=== PATIENT | female | born 1960 | race Caucasian/White ===

== ENCOUNTER 2016-10-03 12:42 | Emergency (ER) | payer OTHER ==
--- NOTE | 2016-10-03 14:12 | EDDOCDS ---
Physician Documentation [facility] Name: Dana Mims Age: 55 yrs Sex: Female : 1960 Arrival Date: 10/03/2016 Time: 12:42 Bed TR7 Private MD: BRANDON VENEGAS Disposition: 10/03/16 14:02 Discharged to Home/Self Care. Impression: Chronic pain syndrome, Hyperesthesia. - Condition is Stable. - Discharge Instructions: Chronic Pain. - Prescriptions for Robaxin- 750 750 mg Oral Tablet - take 1 tablet by ORAL route every 6 hours As needed; 40 tablet. etodolac 200 mg Oral Capsule - take 1 capsule by ORAL route 3 times per day; 30 capsule. - Medication Reconciliation, Local Pharmacy Hours form. - Follow up: BRANDON VENEGAS; When: Call to arrange an appointment; Reason: Further diagnostic work-up, Recheck today's complaints, Continuance of care. - Problem is an ongoing problem. - Symptoms are unchanged. Historical: - Allergies: PENICILLINS; - Home Meds: 1. tramadol 50 mg Oral tab 2 tabs three times a day - PMHx: Arthritis; - PSHx: Cesearean Section; - Social history: Smoking status: Patient states was never smoker of tobacco. No barriers to communication noted, The patient speaks fluent [place], Speaks appropriately for age. - Family history: Not pertinent. - : The pt / caregiver states he / she is not on anticoagulants. Home medication list is obtained from the patient. - Exposure Risk Screening:: None identified. Vital Signs: 10/03 12:44 BP 173 / 73; Pulse 98; Resp 18 S; Temp 98.2(O); Pulse Ox 96% on R/A; Weight 87.09 kg / dd6 192 lbs (R); Height 5 ft. 3 in. (160.02 cm) (R); 12:44 Body Mass Index 34.01 (87.09 kg, 160.02 cm) dd6 MDM: 14:11 Financial registration complete. lg Signatures: Genesis Khoury, RN RN Destiny [place], Mitul Bauman lg Yoshi Krishnan RN RN mlb1 John Taylor PA PA btw MTDD
--- NOTE | 2016-10-03 14:13 | EDDOCDS ---
[facility] Notes [facility] Name: Dana Mims Age: 55 yrs Sex: Female : 1960 Arrival Date: 10/03/2016 Time: 12:42 Bed TR7 Private MD: BRANDON VENEGAS Diagnosis: Chronic pain syndrome;Hyperesthesia Presentation: 10/03 12:45 Presenting complaint: Patient states: Arthritic chronic pain all over ran out of mlb1 Tramadol appointment with PCP on 10/10/16. Adult Sepsis Screening: The patient does not have new or worsening altered mentation. Patient's respiratory rate is less than 22. Systolic blood pressure is greater than 100. Patient has a qSOFA score of 0- Negative Sepsis Screen. Suicide/Homicide risk assessment- the patient denies having any suicidal and/or homicidal ideations and does not present with any other emotional, behavioral or mental health complaints. Status: Patient is not a director of customer service or dependent. Transition of care: patient was not received from another setting of care. 12:45 Acuity: RAMYA Level 5 mlb1 12:45 Method Of Arrival: Walkin/Carried/Asstd mlb1 Triage Assessment: 12:48 General: Appears in no apparent distress, Behavior is appropriate for age, cooperative. mlb1 Pain: Location: "all over" Pain currently is 8 out of 10 on a pain scale. Pt Declines HIV testing. Neurological: No deficits noted. Historical: - Allergies: PENICILLINS; - Home Meds: 1. tramadol 50 mg Oral tab 2 tabs three times a day - PMHx: Arthritis; - PSHx: Cesearean Section; - Social history: Smoking status: Patient states was never smoker of tobacco. No barriers to communication noted, The patient speaks fluent Greek, Speaks appropriately for age. - Family history: Not pertinent. - : The pt / caregiver states he / she is not on anticoagulants. Home medication list is obtained from the patient. - Exposure Risk Screening:: None identified. Screenin:10 Screening information is obtained from the patient. Fall risk: No risks identified. srm Assistance ADL's: requires no assistance with activities of daily living. Abuse/DV Screen: The patient / caregiver reports he/she is: not in a situation that causes fear, pain or injury. Nutritional screening: No deficits noted. Advance Directives: There is no active DNR order. home support is adequate. Assessment: 14:10 General: Appears in no apparent distress, Behavior is appropriate for age, cooperative. srm Neurological: No deficits noted. Respiratory: No deficits noted. GI: No deficits noted. Vital Signs: 12:44 BP 173 / 73; Pulse 98; Resp 18 S; Temp 98.2(O); Pulse Ox 96% on R/A; Weight 87.09 kg dd6 (R); Height 5 ft. 3 in. (160.02 cm) (R); 12:44 Body Mass Index 34.01 (87.09 kg, 160.02 cm) dd6 Vitals: 12:44 Log In Time: October 03, 2016 at 12:42. dd6 ED Course: 12:43 Patient visited by Benny Bailey PCA. dd6 12:43 NONE is Private Physician. dd6 12:43 BRANDON VENEGAS is Private Physician. dd6 12:43 Patient moved to Waiting dd6 12:45 Patient visited by Yoshi Krishnan, HARSHA. mlb1 12:45 Patient moved to Pre RCE dd6 12:46 Triage Initiated mlb1 12:48 Patient visited by Yoshi Krishnan RN. mlb1 13:43 John Taylor PA is PHCP. btw 13:43 Rhona Brady MD is Attending Physician. btw 13:43 Patient visited by John Taylor PA. btw 13:43 Patient moved to Triage 2 srm 14:02 BRANDON VENEGAS is Referral Physician. btw 14:09 Patient moved to TR7 ct3 14:10 The patient / caregiver is instructed regarding the plan of care and ED course. Patient srm has correct armband on for positive identification. 14:10 No IV's were initiated during this patient's visit. No procedures done that require srm assistance. Order Results: There are currently no results for this order. Outcome: 14:02 Discharge ordered by Provider. btw 14:10 Discharge Assessment: Patient awake, alert and oriented x 3. No cognitive and/or srm functional deficits noted. Patient verbalized understanding of disposition instructions. patient administered narcotics - no. The following High Risk Discharge criteria are identified: None. Discharged to home ambulatory. Condition: good Condition: stable. Discharge instructions given to patient, Instructed on discharge instructions, follow up and referral plans. medication usage, Demonstrated understanding of instructions, medications, Pt was receptive of discharge instructions/ teaching. Prescriptions given X 2. No special radiology studies were completed. Property sent home with patient. 14:11 Patient left the ED. srm Signatures: Genesis Khoury, RN RN Yoshi Mcconnell RN RN mlb1 Benny Bailey, CUTTER OUT CUTTER OUT dd6 John Taylor PA PA btw Lyly Casey, CUTTER OUT CUTTER OUT ct3 MTDD
--- NOTE | 2016-10-05 15:12 | EDDOCDS ---
Nurse's Notes [facility] Name: Dana Mims Age: 55 yrs Sex: Female : 1960 Arrival Date: 10/03/2016 Time: 12:42 Bed TR7 Private MD: BRANDON VENEGAS Diagnosis: Chronic pain syndrome;Hyperesthesia Presentation: 10/03 12:45 Presenting complaint: Patient states: Arthritic chronic pain all over ran out of mlb1 Tramadol appointment with PCP on 10/10/16. Adult Sepsis Screening: The patient does not have new or worsening altered mentation. Patient's respiratory rate is less than 22. Systolic blood pressure is greater than 100. Patient has a qSOFA score of 0- Negative Sepsis Screen. Suicide/Homicide risk assessment- the patient denies having any suicidal and/or homicidal ideations and does not present with any other emotional, behavioral or mental health complaints. Status: Patient is not a tax services manager or dependent. Transition of care: patient was not received from another setting of care. 12:45 Acuity: RAMYA Level 5 mlb1 12:45 Method Of Arrival: Walkin/Carried/Asstd mlb1 Triage Assessment: 12:48 General: Appears in no apparent distress, Behavior is appropriate for age, cooperative. mlb1 Pain: Location: "all over" Pain currently is 8 out of 10 on a pain scale. Pt Declines HIV testing. Neurological: No deficits noted. Historical: - Allergies: PENICILLINS; - Home Meds: 1. tramadol 50 mg Oral tab 2 tabs three times a day - PMHx: Arthritis; - PSHx: Cesearean Section; - Social history: Smoking status: Patient states was never smoker of tobacco. No barriers to communication noted, The patient speaks fluent Moh[place], Speaks appropriately for age. - Family history: Not pertinent. - : The pt / caregiver states he / she is not on anticoagulants. Home medication list is obtained from the patient. - Exposure Risk Screening:: None identified. Screenin:10 Screening information is obtained from the patient. Fall risk: No risks identified. srm Assistance ADL's: requires no assistance with activities of daily living. Abuse/DV Screen: The patient / caregiver reports he/she is: not in a situation that causes fear, pain or injury. Nutritional screening: No deficits noted. Advance Directives: There is no active DNR order. home support is adequate. Assessment: 14:10 General: Appears in no apparent distress, Behavior is appropriate for age, cooperative. srm Neurological: No deficits noted. Respiratory: No deficits noted. GI: No deficits noted. Vital Signs: 12:44 BP 173 / 73; Pulse 98; Resp 18 S; Temp 98.2(O); Pulse Ox 96% on R/A; Weight 87.09 kg dd6 (R); Height 5 ft. 3 in. (160.02 cm) (R); 12:44 Body Mass Index 34.01 (87.09 kg, 160.02 cm) dd6 Vitals: 12:44 Log In Time: October 03, 2016 at 12:42. dd6 ED Course: 12:43 Patient visited by Benny Bailey PCA. dd6 12:43 NONE is Private Physician. dd6 12:43 BRANDON VENEGAS is Private Physician. dd6 12:43 Patient moved to Waiting dd6 12:45 Patient visited by Yoshi Krishnan, RN. mlb1 12:45 Patient moved to Pre RCE dd6 12:46 Triage Initiated mlb1 12:48 Patient visited by Yoshi Krishnan, HARSHA. mlb1 13:43 John Taylor PA is PHCP. btw 13:43 Rhona Brady MD is Attending Physician. btw 13:43 Patient visited by John Taylor PA. btw 13:43 Patient moved to Triage 2 srm 14:02 BRANDON VENEGAS is Referral Physician. btw 14:09 Patient moved to TR7 ct3 14:10 The patient / caregiver is instructed regarding the plan of care and ED course. Patient srm has correct armband on for positive identification. 14:10 No IV's were initiated during this patient's visit. No procedures done that require srm assistance. 10/05 08:42 T-Sheet-- Draft Copy was scanned into [employer] and attached to record. gb 09:34 [facility] Payment Agreement was scanned into [employer] and attached to record. lg Order Results: There are currently no results for this order. Outcome: 10/03 14:02 Discharge ordered by Provider. btw 14:10 Discharge Assessment: Patient awake, alert and oriented x 3. No cognitive and/or srm functional deficits noted. Patient verbalized understanding of disposition instructions. patient administered narcotics - no. The following High Risk Discharge criteria are identified: None. Discharged to home ambulatory. Condition: good Condition: stable. Discharge instructions given to patient, Instructed on discharge instructions, follow up and referral plans. medication usage, Demonstrated understanding of instructions, medications, Pt was receptive of discharge instructions/ teaching. Prescriptions given X 2. No special radiology studies were completed. Property sent home with patient. 14:11 Patient left the ED. srm Signatures: Genesis Khoury, RN RN srm Isabell Gandhi, Reg Reg gb Destiny Friedman, Reg Reg lg Yoshi Krishnan RN RN mlb1 Benny Bailey, ROUTE DRIVER SALESPERSON ROUTE DRIVER SALESPERSON dd6 John Taylor PA PA btw Lyly Casey, ROUTE DRIVER SALESPERSON ROUTE DRIVER SALESPERSON ct3 Chart Complete MTDD
--- NOTE | 2016-10-05 15:12 | EDDOCDS ---
Physician Documentation [facility] Name: Dana Mims Age: 55 yrs Sex: Female : 1960 Arrival Date: 10/03/2016 Time: 12:42 Bed TR7 Private MD: BRANDON VENEGAS Disposition: 10/03/16 14:02 Discharged to Home/Self Care. Impression: Chronic pain syndrome, Hyperesthesia. - Condition is Stable. - Discharge Instructions: Chronic Pain. - Prescriptions for Robaxin- 750 750 mg Oral Tablet - take 1 tablet by ORAL route every 6 hours As needed; 40 tablet. etodolac 200 mg Oral Capsule - take 1 capsule by ORAL route 3 times per day; 30 capsule. - Medication Reconciliation, Local Pharmacy Hours form. - Follow up: BRANDON VENEGAS; When: Call to arrange an appointment; Reason: Further diagnostic work-up, Recheck today's complaints, Continuance of care. - Problem is an ongoing problem. - Symptoms are unchanged. Historical: - Allergies: PENICILLINS; - Home Meds: 1. tramadol 50 mg Oral tab 2 tabs three times a day - PMHx: Arthritis; - PSHx: Cesearean Section; - Social history: Smoking status: Patient states was never smoker of tobacco. No barriers to communication noted, The patient speaks fluent Lib[place], Speaks appropriately for age. - Family history: Not pertinent. - : The pt / caregiver states he / she is not on anticoagulants. Home medication list is obtained from the patient. - Exposure Risk Screening:: None identified. Vital Signs: 10/03 12:44 BP 173 / 73; Pulse 98; Resp 18 S; Temp 98.2(O); Pulse Ox 96% on R/A; Weight 87.09 kg / dd6 192 lbs (R); Height 5 ft. 3 in. (160.02 cm) (R); 12:44 Body Mass Index 34.01 (87.09 kg, 160.02 cm) dd6 MDM: 14:11 Financial registration complete. lizz 10/05 08:42 T-Sheet-- Draft Copy was scanned into [employer] and attached to record. 09:34 [facility] Payment Agreement was scanned into [employer] and attached to record. Signatures: Genesis Khoury RN RN Isabell Garcia Reg Reg gb PazsheldonDestiny, Reg Reg lg Yoshi Krishnan RN RN mlb1 John Taylor PA PA btw The chart was reviewed and I authenticate all verbal orders and agree with the evaluation and treatment provided.Attachments: 08:42 T-Sheet-- Draft Copy gb 09:34 [facility] Payment Agreement lg Chart Complete MTDD
--- NOTE | 2016-10-05 15:12 | EDDOCDS ---
Physician Documentation [facility] Name: Dana Mims Age: 55 yrs Sex: Female : 1960 Arrival Date: 10/03/2016 Time: 12:42 Bed TR7 Private MD: BRANDON VENEGAS Disposition: 10/03/16 14:02 Discharged to Home/Self Care. Impression: Chronic pain syndrome, Hyperesthesia. - Condition is Stable. - Discharge Instructions: Chronic Pain. - Prescriptions for Robaxin- 750 750 mg Oral Tablet - take 1 tablet by ORAL route every 6 hours As needed; 40 tablet. etodolac 200 mg Oral Capsule - take 1 capsule by ORAL route 3 times per day; 30 capsule. - Medication Reconciliation, Local Pharmacy Hours form. - Follow up: BRANDON VENEGAS; When: Call to arrange an appointment; Reason: Further diagnostic work-up, Recheck today's complaints, Continuance of care. - Problem is an ongoing problem. - Symptoms are unchanged. Historical: - Allergies: PENICILLINS; - Home Meds: 1. tramadol 50 mg Oral tab 2 tabs three times a day - PMHx: Arthritis; - PSHx: Cesearean Section; - Social history: Smoking status: Patient states was never smoker of tobacco. No barriers to communication noted, The patient speaks fluent Bulgarian, Speaks appropriately for age. - Family history: Not pertinent. - : The pt / caregiver states he / she is not on anticoagulants. Home medication list is obtained from the patient. - Exposure Risk Screening:: None identified. Vital Signs: 10/03 12:44 BP 173 / 73; Pulse 98; Resp 18 S; Temp 98.2(O); Pulse Ox 96% on R/A; Weight 87.09 kg / dd6 192 lbs (R); Height 5 ft. 3 in. (160.02 cm) (R); 12:44 Body Mass Index 34.01 (87.09 kg, 160.02 cm) dd6 MDM: 14:11 Financial registration complete. lizz 10/05 08:42 T-Sheet-- Draft Copy was scanned into [employer] and attached to record. 09:34 [facility] Payment Agreement was scanned into [employer] and attached to record. Signatures: Genesis Khoury RN RN Isabell Garcia Reg Reg gb PazsheldonDestiny, Reg Reg lg Yoshi Krishnan RN RN mlb1 John Taylor PA PA btw The chart was reviewed and I authenticate all verbal orders and agree with the evaluation and treatment provided.Attachments: 08:42 T-Sheet-- Draft Copy gb 09:34 [facility] Payment Agreement lg Chart Complete MTDD
== END 2016-10-03 14:11 | disposition home or self-care (01) ==
LOC: M ED 12:42
DX: G89.4 Chronic pain syndrome (principal); R20.3 Hyperesthesia; M19.90 Unspecified osteoarthritis, unspecified site; Z79.891 Long term (current) use of opiate analgesic; Z88.0 Allergy status to penicillin

== ENCOUNTER 2016-10-05 16:21 | Emergency (ER) | payer OTHER ==
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
== END 2016-10-05 16:48 | disposition home or self-care (01) ==
LOC: M ED 16:21
DX: Z76.0 Encounter for issue of repeat prescription (principal); R20.3 Hyperesthesia; M19.90 Unspecified osteoarthritis, unspecified site; Z79.899 Other long term (current) drug therapy; Z88.0 Allergy status to penicillin

== ENCOUNTER → 2016-12-03 | Outpatient (CLI) | payer OTHER ==
--- NOTE | 2016-12-03 15:10 | REPMRS ---
Patient History The patient states she had a clinical breast exam in 11/2016. Patient is postmenopausal. No known family history of cancer. Digital Woman Screen Mammo: December 03, 2016 - Exam #: [id number] Bilateral CC and MLO view(s) were taken. Technologist: Jenn Lawrence Technologist Prior study comparison: March 15, 2015, digital woman screen mammo performed at [facility] to [facility]. November 09, 2013, digital woman screen mammo performed at [facility] to [facility]. FINDINGS: There are scattered fibroglandular densities. There has been no change in the appearance of the mammogram from the prior studies. There is a mild amount of residual fibroglandular tissue which is fairly symmetric. There is no interval development of dominant mass, architectural distortion, or clustered microcalcification suggestive of malignancy. ASSESSMENT: BI-RADS/ACR category 1 mammogram. Negative. Recommendation Routine screening mammogram in 1 year (for women over age 40). This mammogram was interpreted with the aid of an FDA-approved computer-aided dectection system. Electronically Signed By: Jah Epperson MD 12/03/16 1636
== END ==
LOC: M WHC 13:27
PROVIDERS: ATTEND Nurse Practitioner Family
DX: Z12.31 Encounter for screening mammogram for malignant neoplasm of breast (principal); N83.209 Unspecified ovarian cyst, unspecified side

== ENCOUNTER → 2016-12-03 | Outpatient (REF) | payer OTHER | LOC: M SFHCWAGY 13:53 | PROVIDERS: ATTEND Nurse Practitioner Family | DX: Z12.4 Encounter for screening for malignant neoplasm of cervix (principal) ==

== ENCOUNTER → 2016-12-24 | Outpatient (CLI) | payer OTHER ==
--- NOTE | 2016-12-24 14:38 | REP ---
Clinical: Follow up ovarian cyst. Technique: Transvaginal ultrasound examination. Comparison: 09/13/2015. Findings: Normal anteverted uterus measures 7.9 x 2.7 x 4.4 cm. Endometrial complex measures 3.1 mm thickness. Left ovary measures 3.0 x 1.0 x 1.9 cm with 1 cm physiologic cyst. Right ovary measures 2.7 x 2.6 x 2.0 cm with 2.4 x 1.7 x 1.4 cm cyst similar to prior examination. Trace pelvic free fluid is nonspecific. No adnexal mass lesion. Impression: 2.4 cm right ovarian cyst essentially unchanged from prior examination. Normal uterus and left ovary.
== END ==
LOC: M WHC 13:31
PROVIDERS: ATTEND Nurse Practitioner Family
DX: N83.201 Unspecified ovarian cyst, right side (principal); N83.209 Unspecified ovarian cyst, unspecified side

== ENCOUNTER → 2017-02-26 | Outpatient (CLI) | payer OTHER ==
[2017-02-26 12:42] LABS: MEAN CORPUSCULAR HGB CONC 34.7 g/dl (32.0-36.5); MEAN CORPUSCULAR VOLUME 89.3 fl (80.0-96.0); RED CELL DISTRIBUTION WIDTH 13.3 % (11.5-14.5); WHITE BLOOD COUNT 5.2 K/mm3 (4.0-10.0)
[2017-02-26 13:26] LABS: VITAMIN B12 LEVEL 576 PG/ML (247-911)
[2017-02-26 13:27] LABS: ALBUMIN 3.6 GM/DL (3.2-5.2); ALKALINE PHOSPHATASE 93 U/L (45-117); ALT/SGPT 21 U/L (12-78); ANION GAP 7 MEQ/L (8-16); AST/SGOT 13 U/L (15-37); BILIRUBIN,TOTAL 0.4 MG/DL (0.2-1.0); BLOOD UREA NITROGEN 20 MG/DL (7-18); CALCIUM LEVEL 8.7 MG/DL (8.5-10.1); CARBON DIOXIDE LEVEL 24 MEQ/L (21-32); CHLORIDE LEVEL 110 MEQ/L (98-107); CHOLESTEROL LEVEL 249 MG/DL (<200); GLOMERULAR FILTRATION RATE > 60.0 (>51); GLUCOSE, FASTING 95 MG/DL (70-105); PERCENT SATURATION 28.7 % (13.2-37.4); SODIUM LEVEL 141 MEQ/L (136-145); TOTAL IRON BINDING CAPACITY 342 UG/DL (250-450); TOTAL PROTEIN 6.6 GM/DL (6.4-8.2); TRIGLYCERIDES LEVEL 93 MG/DL (<150)
--- NOTE | 2017-02-26 22:19 | REP ---
Clinical: Back pain. Technique: AP, lateral, bilateral oblique and coned-down views of the lumbosacral spine. Findings: Alignment and lordosis maintained. No acute fracture / compression injury or subluxation. Mild to moderate multilevel degenerative changes include subtle anterior spurring, minimal endplate sclerosis and mild hypertrophic facet changes. Subtle disc space narrowing cannot be excluded. Impression: Mild multilevel degenerative changes suggested. If the patient remains symptomatic consider MRI for further investigation. Signed by Naveen Ellis MD 02/26/2017 10:11 P
--- NOTE | 2017-02-26 22:37 | ECGEPIP ---
Stationary ECG Study [facility] Test Date: 2017-02-26 Pat Name: KORINA MENDEZ Department: Room: - Gender: F Office Services Assistant: ONELIA : 1960 Requested By: Camryn Eaton Order Number: [id number] Reading MD: Yimi Morales Measurements Intervals [place] Rate: 63 P: 50 VT: 155 QRS: 0 QRSD: 88 T: 3 QT: 396 QTc: 408 Interpretive Statements SINUS RHYTHM LOW QRS VOLTAGE IN PRECORDIAL LEADS Poor R-wave progression. Electronically Signed On 02-26-2017 22:36:40 EDT by Yimi Morales
--- NOTE | 2017-02-26 22:42 | REP ---
Clinical: Primary hypertension . Comparison: 04/01/2012 . Technique: PA and lateral. Findings: The mediastinum and cardiac silhouette are normal. The lung michaels are clear and without acute consolidation, effusion, or pneumothorax. The skeletal structures are intact and normal. Impression: 1. No acute cardiopulmonary process. Signed by Naveen Ellis MD 02/26/2017 10:33 P
== END ==
LOC: M LAB 12:00
PROVIDERS: ATTEND Family Medicine
DX: I10 Essential (primary) hypertension (principal); R53.83 Other fatigue; M54.30 Sciatica, unspecified side

== ENCOUNTER 2017-06-24 11:34 | Emergency (ER) | payer OTHER ==
[~2017-06-24] VITALS: Ht 157.5 cm; Wt 84.1 kg
[2017-06-24] MEDS ORDERED: VITA1CAP40 (11:56)
[2017-06-24] MEDS ORDERED: TRAM50TA2 (11:56)
[2017-06-24 12:25] LABS: BASO % 0.7 % (0.0-1.0); EOS # 0.2 10^3/uL (0.0-0.50); IMMATURE GRANULOCYTE % 0.7 % (0-0); LYMPH % 34.7 % (24.0-44.0); MEAN CORPUSCULAR HEMOGLOBIN 30.6 pg (27.0-33.0); MEAN CORPUSCULAR HGB CONC 34.7 g/dl (32.0-36.5); MEAN CORPUSCULAR VOLUME 88.3 fl (80.0-96.0); MONO # 0.4 10^3/uL (0.0-0.8); MONO % 6.1 % (0.0-5.0); NEUTROPHILS # 3.2 10^3/uL (1.8-7.7); NEUTROPHILS % 54.8 % (36.0-66.0); PLATELET COUNT, AUTOMATED 216 10^3/uL (150-450); RED CELL DISTRIBUTION WIDTH 12.9 % (11.5-14.5); WHITE BLOOD COUNT 5.8 10^3/uL (4.0-10.0)
[2017-06-24 12:32] LABS: INR 0.96
[2017-06-24 12:53] LABS: ALBUMIN 3.5 GM/DL (3.2-5.2); ALBUMIN/GLOBULIN RATIO 1.09 (1.00-1.93); ALKALINE PHOSPHATASE 86 U/L (45-117); ALT/SGPT 24 U/L (12-78); AMYLASE 27 U/L (25-115); ANION GAP 8 MEQ/L (8-16); AST/SGOT 16 U/L (15-37); BILIRUBIN,DIRECT < 0.1 MG/DL (0.0-0.2); BILIRUBIN,TOTAL 0.3 MG/DL (0.2-1.0); BLOOD UREA NITROGEN 15 MG/DL (7-18); CALCIUM LEVEL 8.8 MG/DL (8.5-10.1); CARBON DIOXIDE LEVEL 25 MEQ/L (21-32); CHLORIDE LEVEL 105 MEQ/L (98-107); CREATININE FOR GFR 0.64 MG/DL (0.55-1.02); GLOMERULAR FILTRATION RATE > 60.0 (>51); GLUCOSE, FASTING 115 MG/DL (70-105); POTASSIUM SERUM 3.3 MEQ/L (3.5-5.1); SODIUM LEVEL 138 MEQ/L (136-145); TOTAL PROTEIN 6.7 GM/DL (6.4-8.2)
[2017-06-24] MEDS ORDERED: ISOVUE-370 76% 100ML VIAL (Q9967) As Ordered ONE (13:41)
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
[2017-06-24] MEDS ORDERED: LIDOCAINE W/EPINEPHRINE 1% 20ML VIAL SC ONE (14:30)
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
[2017-06-24] MEDS ORDERED: CYCL10TA PO (15:20)
[2017-06-24] MEDS ORDERED: IBUP-1022 PO (15:20)
[2017-06-24 15:30] VITALS: BP 168/78
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
--- NOTE | 2017-06-25 09:04 | ED PDOC ---
Post-Departure Follow-Up radiology report faxed to Rhona Zabala MD Jun 25, 2017 09:04
== END 2017-06-24 15:45 | disposition home or self-care (01) ==
LOC: M ED 11:34
DX: E27.9 Disorder of adrenal gland, unspecified (principal); R91.1 Solitary pulmonary nodule; S13.4XXA Sprain of ligaments of cervical spine, initial encounter; S01.511A Laceration without foreign body of lip, initial encounter; S20.20XA Contusion of thorax, unspecified, initial encounter; V43.52XA Car driver injured in collision with other type car in traffic accident, initial encounter; Y92.410 Unspecified street and highway as the place of occurrence of the external cause; Y93.9 Activity, unspecified; Y99.9 Unspecified external cause status; Z87.891 Personal history of nicotine dependence; K80.20 Calculus of gallbladder without cholecystitis without obstruction; M47.812 Spondylosis without myelopathy or radiculopathy, cervical region; Z79.899 Other long term (current) drug therapy; Z79.891 Long term (current) use of opiate analgesic; Z88.5 Allergy status to narcotic agent; Z88.0 Allergy status to penicillin
CPT/HCPCS: 12013; 70450; 71260; 72125; 73060; 73090; 74177; 80048; 80076; 82150; 82550; 82553; 83690; 85025; 85610; 85730; 86850; 86900; 86901; 93041; 94760; 99285; Q9967

== ENCOUNTER → 2017-07-02 | Outpatient (CLI) | payer OTHER ==
[~2017-07-02] MED LIST: CYCL10TA PO; IBUP-1022 PO; TRAM50TA2; VITA1CAP40
--- NOTE | 2017-07-02 12:17 | REP ---
Right ribs and PA chest: Right ribs five views: There are no rib fractures or other rib abnormalities. There is a mottled density in the right humeral head, not significantly changed from a PA and lateral chest of 04/01/2012, likely an enchondroma or bone infarct. PA chest: Comparison 02/26/2017. There is no pneumothorax, hemothorax or pulmonary contusion. Lung michaels are clear. Cardiac size is normal. The garett, mediastinum, and bony thorax are unremarkable. There is an enchondroma versus bone infarct in the right humeral head, unchanged. Signed by Jah Richards MD 07/02/2017 12:08 P
== END ==
LOC: M LRY 11:32
PROVIDERS: ATTEND Physician Assistant
DX: S29.8XXD Other specified injuries of thorax, subsequent encounter (principal)

== ENCOUNTER → 2017-07-16 | Outpatient (CLI) | payer OTHER ==
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
== END ==
LOC: M RAD 08:31
PROVIDERS: ATTEND Physician Assistant
DX: R10.11 Right upper quadrant pain (principal)

== ENCOUNTER → 2017-09-20 | Outpatient (CLI) | payer SELFPAY | LOC: M WUC 13:02 | PROVIDERS: ATTEND Physical Therapist | DX: Z02.1 Encounter for pre-employment examination (principal) ==

== ENCOUNTER → 2023-10-30 | Outpatient (CLI) | payer SELFPAY ==
[~2023-10-30] MED LIST changes: +CYCL-707 PO; -CYCL10TA PO; -VITA1CAP40; +VITA50005
== END ==
LOC: M WUC 15:08
PROVIDERS: ATTEND Family Medicine
DX: Z11.1 Encounter for screening for respiratory tuberculosis (principal)